=== PATIENT | male | born 1980 | race Caucasian/White ===

== ENCOUNTER 2018-11-29 11:44 | Emergency (ER) | payer OTHER ==
[2018-11-29 12:10] VITALS: BP 123/77; PULSE 16; BMI 27.2
[2018-11-29] MEDS ORDERED: DIPHTH,PERTUSS(ACELL),TET 0.5 ML DISP.SYRIN IM ONE ×2 (13:41→13:42)
[2018-11-29 13:47] VITALS: TEMP 98
--- NOTE | 2018-11-29 13:50 | PDOC ---
History of Present Illness - General Chief Complaint: Laceration Stated Complaint: RIGHT THUMB LAC Time Seen by Provider: 11/29/18 12:58 - History of Present Illness Initial Comments: 11/29/18 13:46 38-year-old male without comorbidities, not current on tetanus presents for evaluation of a laceration of his right hand. 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 Past History - Past Medical History Allergies/Adverse Reactions: Allergies Allergy/AdvReac Type Severity Reaction Status Date / Time No Known Allergies Allergy Verified 11/29/18 12:10 Home Medications: Ambulatory Orders Cephalexin [Keflex] 500 mg PO QID #20 capsule 11/29/18 Asthma: Yes COPD: Yes - Immunization History Immunization Up to Date: No - Suicide/Smoking/Psychosocial Hx Smoking History: Never smoked Information on smoking cessation initiated: No Hx Alcohol Use: No Drug/Substance Use Hx: No Review of Systems - Review of Systems Integumentary: Yes: See HPI *Physical Exam - Vital Signs Last Vital Signs Temp Pulse Resp BP Pulse Ox 97.0 F L 16 L 16 123/77 100 11/29/18 12:07 11/29/18 12:07 11/29/18 12:07 11/29/18 12:07 11/29/18 12:07 - Physical Exam Comments: 11/29/18 13:46 Right hand skin color and temperature are normal. There is a irregularly shaped laceration on the dorsum of the right hand overlying the first MCP J subcutaneous fat is exposed. There is no exposed bone or tendon. He has decreased sensation in his thumb and over the area of the wound no gross motor deficits Moderate Sedation - Procedure Monitoring Vital Signs: Procedure Monitoring Vital Signs Temperature 97.0 F L 11/29/18 12:07 Pulse Rate 16 L 11/29/18 12:07 Respiratory Rate 16 11/29/18 12:07 Blood Pressure 123/77 11/29/18 12:07 O2 Sat by Pulse Oximetry (%) 100 11/29/18 12:07 ED Treatment Course - Medications Given in the ED: ED Medications Discontinued Medications Generic Name Dose Route Start Last Admin Trade Name Freq PRN Reason Stop Dose Admin Diphtheria/Tetanus/Acell Pertussis 0.5 ml 11/29/18 13:41 11/29/18 13:45 Boostrix - IM 11/29/18 13:42 0.5 ml .ONCE ONE Administration Medical Decision Making - Medical Decision Making 11/29/18 13:47 The laceration was anesthetized with 6 mL of 1% lidocaine without epinephrine, copiously irrigated and explored to its base in a bloodless field without any identification of foreign body. Again copiously irrigated edges were approximated using 4-0 Prolene 4 sutures were placed in a simple interrupted fashion *DC/Admit/Observation/Transfer Diagnosis at time of Disposition: Laceration of thumb - Discharge Dispostion Disposition: HOME Condition at time of disposition: Stable Decision to Admit order: No - Prescriptions Prescriptions: Cephalexin [Keflex] 500 mg PO QID #20 capsule - Referrals Referrals: Mohan Lamar MD [Staff Physician] - - Patient Instructions Printed Discharge Instructions: DI for Laceration Repair Additional Instructions: Please take the antibiotics as directed. Return to the emergency room should you experience any drainage redness swelling or increasing pain around the area of the laceration. Keep the dressing on for the next 48 hours and keep the area clean and dry. After 48 hours and may remove the dressing and wash the area with soap and water and leave it open to air. If you need to work he must cover it with glass. Follow-up with hand surgery in 1-2 days for further evaluation and treatment options. I believe there may be a nerve injury and you're thumb which may need repair so again please follow-up with hand surgery within the next 1-2 days. He may take Tylenol and Motrin as directed for pain - Post Discharge Activity
== END 2018-11-29 13:55 | disposition home or self-care (01) ==
LOC: JERFT 11:44
PROC: 3E0234Z Introduction of Serum, Toxoid and Vaccine into Muscle, Percutaneous Approach (ICD-10-PCS; principal; 2018-11-29)
PROC: 0HQFXZZ Repair Right Hand Skin, External Approach (ICD-10-PCS; 2018-11-29)
DX: S61.011A Laceration without foreign body of right thumb without damage to nail, initial encounter (principal)
CPT/HCPCS: 90715; 99281-25

== ENCOUNTER 2019-08-07 07:05 | Emergency (ER) | payer SELFPAY ==
[2019-08-07 07:35] VITALS: BP 130/79; PULSE 91; TEMP 97.8; BMI 30.1
[2019-08-07] MEDS ORDERED: ALBUTEROL SO4 2.5/IPRATROPIUM 0.5 INH SOL 3 ML VIAL.NEB. NEB ONE ×2 (08:34→08:55)
--- NOTE | 2019-08-07 08:34 | PDOC ---
History of Present Illness - General History Source: Patient Exam Limitations: Clinical Condition - History of Present Illness Initial Comments: 08/07/19 08:29 Patient with history of asthma presented with complaint of midsternal chest pain and chest tightness upon waking this morning. Patient report has been feeling chest tightness in the past week and has been using rescue inhaler with last use yesterday. Denies numbness or tingling sensation, nausea, vomiting, shortness of breath, dizziness, headache or lightheadedness. Denies any other symptoms. Reports symptoms is improving now Is this a multiple visit Asthma Patient?: No Timing/Duration: momentarily, 1-3 hours <Silvestre Murcia - Last Filed: 08/07/19 09:50> <Everton Driscoll - Last Filed: 08/07/19 15:58> - General Chief Complaint: Chest Pain Stated Complaint: CHEST PAIN Time Seen by Provider: 08/07/19 08:08 Past History - Past Medical History Asthma: Yes COPD: No - Immunization History Immunization Up to Date: No - Psycho Social/Smoking Cessation Hx Smoking History: Current some day smoker Have you smoked in the past 12 months: Yes Number of Cigarettes Smoked Daily: 2 Information on smoking cessation initiated: No Hx Alcohol Use: No Drug/Substance Use Hx: No <Silvestre Murcia - Last Filed: 08/07/19 09:50> <Everton Driscoll - Last Filed: 08/07/19 15:58> - Past Medical History Allergies/Adverse Reactions: Allergies Allergy/AdvReac Type Severity Reaction Status Date / Time No Known Allergies Allergy Verified 08/07/19 07:32 Home Medications: Ambulatory Orders Albuterol Sulfate [Proair Hfa] 1 inh IH Q4HWA PRN #1 [email or web address] 08/07/19 Prednisone [Deltasone] 20 mg PO BID 4 Days #8 tablet 08/07/19 Review of Systems - Review of Systems Able to Perform ROS?: Yes Is the patient limited Georgian proficient: No Constitutional: No: Chills, Fever, Malaise HEENTM: Yes: Symptoms Reported, See HPI, Nose Congestion. No: Eye Pain, Blurred Vision, Tearing, Recent change in vision, Double Vision, Cataracts, Ear Pain, Ocular Prothesis, Ear Discharge, Nose Pain, Tinnitus, Nose Bleeding, Hearing Loss, Throat Pain, Throat Swelling, Mouth Pain, Dental Problems, Difficulty Swallowing, Mouth Swelling, Other Respiratory: Yes: Symptoms reported, See HPI, Shortness of Breath (intermittent) , Wheezing (intermittent). No: Cough, Orthopnea, SOB with Exertion, SOB at Rest , Stridor, Productive cough, Hemoptysis, Other Cardiac (ROS): Yes: Symptoms Reported, See HPI, Chest Tightness (improved). No : Chest Pain, Edema, Irregular Heart Rate, Lightheadedness, Palpitations, Syncope, Other ABD/GI: No: Nausea, Vomiting : No: Symptoms Reported Musculoskeletal: No: Symptoms Reported Neurological: No: Symptoms reported, Headache, Numbness, Paresthesia, Tingling All Other Systems: Reviewed and Negative <Silvestre Murcia - Last Filed: 08/07/19 09:50> *Physical Exam - Vital Signs Last Vital Signs Temp Pulse Resp BP Pulse Ox 97.8 F 91 H 18 130/79 97 08/07/19 07:32 08/07/19 07:32 08/07/19 07:32 08/07/19 07:32 08/07/19 07:32 - Physical Exam Comments: 08/07/19 08:33 GENERAL: Well developed, well nourished. Awake and alert. No acute distress. HEENT: Normocephalic, atraumatic. PERRLA, EOMI. No conjunctival pallor. Sclera are non-icteric. Moist mucous membranes. Oropharynx is clear. NECK: Supple. Full ROM. CARDIOVASCULAR: Regular rate and rhythm. No murmurs, rubs, or gallops. Distal pulses are 2+ and symmetric. PULMONARY: No evidence of respiratory distress. Lungs clear to auscultation bilaterally. No wheezing, rales or rhonchi. ABDOMINAL: Soft. Non-tender. Non-distended. No rebound or guarding. No organomegaly. Normoactive bowel sounds. MUSCULOSKELETAL Normal range of motion at all joints. SKIN: Warm and dry. Normal capillary refill. No rashes. No cyanosis. NEUROLOGICAL: Alert, awake, appropriate. Gait is normal without ataxia. PSYCHIATRIC: Cooperative. Good eye contact. Appropriate mood General Appearance: Yes: Nourished, Appropriately Dressed. No: Apparent Distress <Silvestre Murcia - Last Filed: 08/07/19 09:50> - Vital Signs Last Vital Signs Temp Pulse Resp BP Pulse Ox 97.8 F 91 H 18 130/79 97 08/07/19 07:32 08/07/19 07:32 08/07/19 07:32 08/07/19 07:32 08/07/19 08:50 <Everton Driscoll - Last Filed: 08/07/19 15:58> ED Treatment Course - LABORATORY CBC & Chemistry Diagram: 08/07/19 08:28 08/07/19 08:28 - RADIOLOGY Radiology Studies Ordered: Category Date Time Status CHEST PA & LAT [RAD] Stat Radiology 08/07/19 08:12 Ordered <Silvestre Murcia - Last Filed: 08/07/19 09:50> - LABORATORY CBC & Chemistry Diagram: 08/07/19 08:28 08/07/19 08:28 - ADDITIONAL ORDERS Additional order review: Laboratory Results 08/07/19 08/07/19 08:28 08:28 Sodium 140 Potassium 4.4 Chloride 105 Carbon Dioxide 31 Anion Gap 4 L BUN 13.7 Creatinine 0.9 Est GFR (CKD-EPI)AfAm 123.39 Est GFR (CKD-EPI)NonAf 106.46 Random Glucose 96 Calcium 9.3 Total Bilirubin 0.4 AST 16 ALT 32 Alkaline Phosphatase 72 Creatine Kinase 158 Creatine Kinase Index No Result Required. CK-MB (CK-2) < 1.0 Troponin I < 0.02 Total Protein 7.3 Albumin 4.2 08/07/19 08:28 RBC 5.41 MCV 90.7 MCHC 35.4 RDW 13.6 MPV 7.3 L Neutrophils % 71.6 Lymphocytes % 15.8 Monocytes % 8.5 Eosinophils % 3.0 Basophils % 1.1 - Medications Given in the ED: ED Medications Discontinued Medications Generic Name Dose Route Start Last Admin Trade Name Freq PRN Reason Stop Dose Admin Albuterol/Ipratropium 1 amp 08/07/19 08:34 08/07/19 09:03 Duoneb - NEB 08/07/19 08:35 1 amp ONCE ONE Administration <Everton Driscoll - Last Filed: 08/07/19 15:58> Medical Decision Making - Medical Decision Making 08/07/19 08:30 Patient with history of asthma presented with complaint of midsternal chest pain and chest tightness upon waking this morning. Patient report has been feeling chest tightness in the past week and has been using rescue inhaler with last use yesterday. Denies numbness or tingling sensation, nausea, vomiting, shortness of breath, dizziness, headache or lightheadedness. Denies any other symptoms. Reports symptoms is improving now. Clinical exam unremarkable lungs clear to auscultation bilaterally normal cardiac exam. Patient no acute distress. EKG shows normal sinus rhythm. Symptoms likely bronchospasm from asthma versus less likely cardiogenic symptoms. CBC, CMP and cardiac profile lab ordered, checks x-ray ordered to rule out chest pathology. DuoNeb ordered for bronchospasm. Solu-Medrol to be ordered after imaging and lab results for bronchospasm 08/07/19 09:44 CBC, CMP and cardiac profile labs unremarkable. Chest x-ray shows no acute pathology. Patient feels better after DuoNeb. Symptoms likely bronchospasm from asthma and patient stable for discharge to take rescue inhaler which was refilled for patient and prednisone p.o. with advised to follow-up with PCP in 2 to 3 days for reassessment. Patient voiced understanding to follow-up and will follow up. Patient stable for discharge <Silvestre Murcia - Last Filed: 08/07/19 09:50> - Medical Decision Making 08/07/19 15:58 I reviewed the case of the mid-level practitioner and was available for consultation while in the emergency department <Everton Driscoll - Last Filed: 08/07/19 15:58> Discharge - Discharge Information Problems reviewed: Yes - Admission No <Silvestre Murcia - Last Filed: 08/07/19 09:50> <Everton Driscoll - Last Filed: 08/07/19 15:58> - Discharge Information Clinical Impression/Diagnosis: Bronchospasm, acute Asthma Qualifiers: Asthma severity: mild Asthma persistence: intermittent Asthma complication type : with acute exacerbation Qualified Code(s): J45.21 - Mild intermittent asthma with (acute) exacerbation Condition: Stable Disposition: HOME - Additional Discharge Information Prescriptions: Albuterol Sulfate [Proair Hfa] 1 inh IH Q4HWA PRN #1 hfa.aer.ad PRN Reason: Asthma Prednisone [Deltasone] 20 mg PO BID 4 Days #8 tablet - Patient Discharge Instructions Patient Printed Discharge Instructions: DI for Atypical Chest Pain Additional Instructions: Your blood work is normal. Your symptoms likely caused by chest tightness from asthma. chest x-ray shows no acute pathology. Follow-up with primary care as needed. Take prescribed medication as prescribed
[2019-08-07 08:41] LABS: BASO % 1.1 % (0-2.0); HEMOGLOBIN 17.3 GM/dL (11.7-16.9); LYMPH % 15.8 % (8-40); MCH 32.1 pg (25.7-33.7); MCHC 35.4 g/dl (32.0-35.9); MEAN CELL VOLUME 90.7 fl (80-96); MEAN PLT VOLUME 7.3 fl (7.5-11.1); MONO % 8.5 % (3.8-10.2); NEUT % 71.6 % (42.8-82.8); PLATELET COUNT 257 K/MM3 (134-434); RBC 5.41 M/mm3 (4.00-5.60); RDW 13.6 % (11.9-15.9); WHITE BLOOD COUNT 8.9 K/mm3 (4.0-10.0)
[2019-08-07 09:11] LABS: ALBUMIN 4.2 g/dl (3.4-5.0); BILIRUBIN,TOTAL 0.4 mg/dL (0.2-1); BLOOD UREA NITROGEN 13.7 mg/dL (7-18); CALCIUM 9.3 mg/dL (8.5-10.1); CREATININE 0.9 mg/dL (0.55-1.3); POTASSIUM 4.4 mmol/L (3.5-5.1); TOT PROT 7.3 g/dl (6.4-8.2)
--- NOTE | 2019-08-08 12:54 | EKG ---
Test Reason : Blood Pressure : / mmHG Vent. Rate : 066 BPM Atrial Rate : 066 BPM P-R Int : 148 ms QRS Dur : 100 ms QT Int : 370 ms P-R-T Axes : 059 016 055 degrees QTc Int : 387 ms NORMAL SINUS RHYTHM NONSPECIFIC T WAVE ABNORMALITY ABNORMAL ECG NO PREVIOUS ECGS AVAILABLE Confirmed by DRE MORENO, LISA ([id number]) on 08/08/2019 12:54:19 PM Referred By: Confirmed By:LISA ERICKSON MD
== END 2019-08-07 09:42 | disposition home or self-care (01) ==
LOC: JER 07:05
PROC: 3E0F7GC Introduction of Other Therapeutic Substance into Respiratory Tract, Via Natural or Artificial Opening (ICD-10-PCS; principal; 2019-08-07)
DX: J45.21 Mild intermittent asthma with (acute) exacerbation (principal); Z72.0 Tobacco use
CPT/HCPCS: 36415; 71046-TC-FY; 80053; 82550; 82553; 84484; 85025; 93005; 93010; 99283-25